=== PATIENT | female | born 1990 | race American Indian/Alaskan Native ===

== ENCOUNTER 2018-02-16 13:37 | Emergency (ER) | payer OTHER ==
[~2018-02-16] VITALS: Ht 162.6 cm; Wt 50.8 kg
[~2018-02-16 13:37] MED LIST: MACROBID 100 M100 MG PO; PYRIDIUM200 MG PO
[2018-02-16] MEDS ORDERED: ZANTAC150 M3 (13:51)
[2018-02-16] MEDS ORDERED: PRILOSEC10 MG (13:51)
== END 2018-02-16 17:19 | disposition home or self-care (01) ==
LOC: ER 13:37
DX: N93.8 Other specified abnormal uterine and vaginal bleeding (principal)

== ENCOUNTER 2018-10-02 09:31 | Emergency (ER) | payer OTHER ==
[~2018-10-02] VITALS: Ht 162.6 cm; Wt 49.9 kg
[~2018-10-02 09:31] MED LIST changes: +PRILOSEC10 MG; +ZANTAC150 M3
[2018-10-02] MEDS ORDERED: SINGULAIR 4MG4 MG (09:43)
[2018-10-02] MEDS ORDERED: ALBUTEROL0.63 MG/3 (09:43)
== END 2018-10-02 15:47 | disposition home or self-care (01) ==
LOC: ER 09:31
DX: B34.9 Viral infection, unspecified (principal)

== ENCOUNTER 2020-12-24 14:50 | Emergency (ER) | payer OTHER ==
[~2020-12-24] VITALS: Ht 160 cm; Wt 57.2 kg
[~2020-12-24 14:50] MED LIST changes: +ALBUTEROL0.63 MG/3; +SINGULAIR 4MG4 MG
[2020-12-24] MEDS ORDERED: ACETAMINOPHEN650 M2 PO (20:19)
== END 2020-12-24 21:13 | disposition home or self-care (01) ==
LOC: ER 14:50
DX: O26.892 Other specified pregnancy related conditions, second trimester (principal); R10.2 Pelvic and perineal pain; T50.B95A Adverse effect of other viral vaccines, initial encounter; Z3A.18 18 weeks gestation of pregnancy

== ENCOUNTER 2021-02-19 19:34 | Outpatient (CLI) | payer OTHER ==
[~2021-02-19 19:34] MED LIST changes: +ACETAMINOPHEN650 M2 PO
== END 2021-02-20 11:41 | disposition home or self-care (01) ==
LOC: OBS/DEL 19:34
PROVIDERS: ATTEND Obstetrics & Gynecology
DX: O23.42 Unspecified infection of urinary tract in pregnancy, second trimester (principal); Z3A.26 26 weeks gestation of pregnancy

== ENCOUNTER 2021-04-23 20:13 | Outpatient (CLI) | payer OTHER | END 2021-04-24 13:25 | disposition home or self-care (01) | LOC: OBS/DEL 20:13 | PROVIDERS: ATTEND Obstetrics & Gynecology | DX: O26.893 Other specified pregnancy related conditions, third trimester (principal); M54.59 Other low back pain; Z3A.35 35 weeks gestation of pregnancy ==

== ENCOUNTER 2021-05-06 11:34 | Inpatient (IN) | payer OTHER ==
[~2021-05-06] VITALS: Ht 160 cm; Wt 2.7 kg
[2021-05-06] MEDS ORDERED: PRENATAL TABLE1 EAC1 PO (12:44)
== END 2021-05-09 15:18 | disposition home or self-care (01) | DRG 785 ==
LOC: LDR 11:34 → OB/GYN 11:34 → O/R 11:34 → OB/GYN 15:38
PROVIDERS: ADMIT Obstetrics & Gynecology; ATTEND Obstetrics & Gynecology
PROC: 0UB70ZZ Excision of Bilateral Fallopian Tubes, Open Approach (ICD-10-PCS; 2021-05-06)
PROC: 4A1HXFZ Monitoring of Products of Conception, Cardiac Rhythm, External Approach (ICD-10-PCS; 2021-05-06)
PROC: 10D00Z1 Extraction of Products of Conception, Low, Open Approach (ICD-10-PCS; principal; 2021-05-06 12:00)
DX: O34.211 Maternal care for low transverse scar from previous cesarean delivery (principal); Z30.2 Encounter for sterilization; Z53.29 Procedure and treatment not carried out because of patient's decision for other reasons; Z37.0 Single live birth; Z3A.37 37 weeks gestation of pregnancy

== ENCOUNTER 2024-05-18 10:25 | Emergency (ER) | payer OTHER ==
[~2024-05-18] VITALS: Ht 160 cm; Wt 59.0 kg
[~2024-05-18 10:25] MED LIST changes: +PRENATAL TABLE1 EAC1 PO
[2024-05-18 10:36] VITALS: BP 109/72; O2SAT 100
[2024-05-18] MEDS ORDERED: TRAMADOL HCL 50 MG TABLET PO ONE (11:15)
[2024-05-18 11:34] LABS: HEMATOCRIT 42.2 % (36.0-45.00); HEMOGLOBIN 14.4 g/dL (12.0-15.00); MEAN CELL VOLUME 98.6 fL (80.00-100.00); MEAN CORPUSCULAR HEMOGLOBIN 33.6 pg (27.00-32.0); MEAN CORPUSCULAR HGB CONC 34.1 g/dl (32.0-36.0); PLATELET COUNT 228 K/uL (150-450); RED BLOOD COUNT 4.28 M/uL (4.00-6.00); RED CELL DISTRIBUTION WIDTH 13.3 % (11.5-14.5)
[2024-05-18 12:16] LABS: INR 1.06; PARTIAL THROMBOPLASTIN TIME 28.1 SECONDS (22.0-34.0); PROTHROMBIN TIME 11.5 SECONDS (9.0-11.5)
[2024-05-18 12:23] LABS: ALKALINE PHOSPHATASE 78 U/L (50-136); ALT/SGPT 19 U/L (12-78); ANION GAP 8 (10.0-20.0); AST/SGOT 13 U/L (15-37); BILIRUBIN TOTAL 0.49 mg/dL (0.3-1.2); BLOOD UREA NITROGEN 7 mg/dL (7-18); BUN CREA RATIO 10 (7.0-25.0); CALCIUM 9.4 mg/dL (8.5-10.1); CARBON DIOXIDE 30 mEq/L (21-32); CHLORIDE 109 mmol/L (98-107); CREATININE SERUM 0.68 mg/dL (0.55-1.02); GFR 99.65; GLOBULINA 3.9 G/DL (2.4-3.5); GLUCOSE FASTING 75 mg/dL (65-100); OSMOLALITY SERUM 282 MOSM/KG (275-295); POTASSIUM 3.76 mEq/L (3.5-5.1); SODIUM 143 mmol/L (136-145); TOTAL PROTEIN 7.9 gm/dL (6.4-8.2)
[2024-05-18 12:26] LABS: HCG QUANTITATIVE < 1 mUI/mL (1-3)
[2024-05-18] MEDS ORDERED: NORFLEX100MG PO (12:49)
== END 2024-05-18 12:53 | disposition home or self-care (01) ==
LOC: ER 10:27
PROVIDERS: General Practice
DX: N83.291 Other ovarian cyst, right side (principal); Z88.8 Allergy status to other drugs, medicaments and biological substances; Z87.09 Personal history of other diseases of the respiratory system